=== PATIENT | male | born 1980 | race Caucasian/White ===

== ENCOUNTER 2017-03-18 03:44 | Emergency (ER) | payer BC | END 2017-03-18 09:36 | disposition home or self-care (01) | LOC: FTE 03:44 | DX: M79.601 Pain in right arm (principal); I10 Essential (primary) hypertension; F17.210 Nicotine dependence, cigarettes, uncomplicated | CPT/HCPCS: 73060; 73060-RT; 93971; 99284-25 ==

== ENCOUNTER 2017-05-17 18:53 | Emergency (ER) | payer SELFPAY, BC | END 2017-05-17 19:10 | disposition left against medical advice (07) | LOC: E/R 18:53 | DX: Z53.21 Procedure and treatment not carried out due to patient leaving prior to being seen by health care provider (principal) ==

== ENCOUNTER 2017-07-18 02:55 | Emergency (ER) | payer BC ==
[2017-07-18 04:07] LABS: ADD MAN DIFF? NO
[2017-07-18 04:09] LABS: WHITE BLOOD COUNT 6.3 10^3/ul (4.8-10.8)
[2017-07-18 04:09] LABS: BASOPHILS % 0.5 % (0.0-2.0); EOSINOPHILS # 0.2 10^3/ul (0.0-0.5); EOSINOPHILS % 2.7 % (0.0-7.0); HEMATOCRIT 44.3 % (42.0-52.0); LYMPHOCYTES # 1.2 10^3/ul (0.8-2.9); LYMPHOCYTES % 18.6 % (15.0-51.0); MEAN CORPUSCULAR HEMOGLOBIN 32.1 pg (29.0-33.0); MEAN CORPUSCULAR HGB CONC 33.9 g/dl (32.0-37.0); MEAN CORPUSCULAR VOLUME 94.9 fl (82.0-101.0); MEAN PLATELET VOLUME 10.9 fl (7.4-10.4); MONOCYTE # 0.6 10^3/ul (0.3-0.9); MONOCYTES % 9.7 % (0.0-11.0); NEUTROPHIL # 4.3 10^3/ul (1.6-7.5); PLATELET COUNT 186 10^3/UL (140-415); RED BLOOD COUNT 4.67 10^6/ul (4.70-6.10); RED CELL DISTRIBUTION WIDTH 12.4 % (11.5-14.5)
[2017-07-18] MEDS: morphine 4 MG/ML VIAL IV (04:12)
[2017-07-18] MEDS: SOD CHLORIDE 0.9% 1,000 ML IV (04:12)
[2017-07-18] MEDS: ONDANSETRON 4 MG INJ IV (04:12)
[2017-07-18 04:13] LABS: ADD UMIC YES; UR ASCORBIC ACID NEGATIVE (NEGATIVE); UR BILIRUBIN (Dip) NEGATIVE (NEGATIVE); UR BLOOD (Dip) 1+ mg/dL (NEGATIVE); UR CLARITY CLEAR (CLEAR); UR COLOR STRAW (YELLOW); UR GLUCOSE (Dip) NEGATIVE (NEGATIVE); UR KETONES (Dip) NEGATIVE (NEGATIVE); UR LEUKOCYTE ESTERASE (Dip) NEGATIVE Leu/ul (NEGATIVE); UR NITRITE (Dip) NEGATIVE (NEGATIVE); UR RBC 1 /HPF (0-5); UR SPECIFIC GRAVITY (Dip) 1.009 (1.003-1.030); UR TOTAL PROTEIN (Dip) NEGATIVE (NEGATIVE); UR UROBILINOGEN (Dip) NEGATIVE (NEGATIVE); UR WBC 0 /HPF (0-5)
[2017-07-18 04:27] LABS: ALANINE AMINOTRANSFERASE 32 IU/L (13-69); ALBUMIN 4.2 g/dl (3.3-4.9); ALBUMIN/GLOBULIN RATIO 1.27; ALKALINE PHOSPHATASE 126 IU/L (42-121); ANION GAP 17 (8-16); ASPARTATE AMINO TRANSFERASE 20 IU/L (15-46); BILIRUBIN,INDIRECT 0.2 mg/dl (0-1.1); BILIRUBIN,TOTAL 0.2 mg/dl (0.2-1.3); BLOOD UREA NITROGEN 24 mg/dl (7-20); CALCIUM 10.8 mg/dl (8.4-10.2); CARBON DIOXIDE 23 mmol/L (21-31); CHLORIDE 107 mmol/L (97-110); CREATININE 0.86 mg/dl (0.61-1.24); GLUCOSE 102 mg/dl (70-220); LIPASE 81 U/L (23-300); POTASSIUM 4.1 mmol/L (3.5-5.1); SODIUM 143 mmol/L (135-144); TOTAL PROTEIN 7.5 g/dl (6.1-8.1)
== END 2017-07-18 05:07 | disposition home or self-care (01) ==
LOC: E/R 02:55
DX: R10.31 Right lower quadrant pain (principal); R11.0 Nausea; I10 Essential (primary) hypertension
CPT/HCPCS: 36415; 74176; 80053; 81001; 83690; 85025; 96374; 96375; 99285-25

== ENCOUNTER 2017-07-29 04:06 | Emergency (ER) | payer BC ==
[2017-07-29 05:08] LABS: ADD MAN DIFF? NO
[2017-07-29] MEDS: morphine 4 MG/ML VIAL IV (05:08)
[2017-07-29] MEDS: ONDANSETRON 4 MG INJ IV (05:08)
[2017-07-29] MEDS: SOD CHLORIDE 0.9% 1,000 ML IV (05:08)
[2017-07-29 05:13] LABS: BASOPHILS % 0.6 % (0.0-2.0); EOSINOPHILS # 0.2 10^3/ul (0.0-0.5); EOSINOPHILS % 4.5 % (0.0-7.0); HEMATOCRIT 47.6 % (42.0-52.0); HEMOGLOBIN 16.1 g/dl (14.0-18.0); LYMPHOCYTES % 19.1 % (15.0-51.0); MEAN CORPUSCULAR HEMOGLOBIN 32.1 pg (29.0-33.0); MEAN CORPUSCULAR HGB CONC 33.8 g/dl (32.0-37.0); MONOCYTE # 0.5 10^3/ul (0.3-0.9); NEUTROPHIL # 3.5 10^3/ul (1.6-7.5); NEUTROPHILS % 66.2 % (39.0-77.0); PLATELET COUNT 189 10^3/UL (140-415); RED BLOOD COUNT 5.01 10^6/ul (4.70-6.10); RED CELL DISTRIBUTION WIDTH 12.5 % (11.5-14.5)
[2017-07-29 05:13] LABS: WHITE BLOOD COUNT 5.3 10^3/ul (4.8-10.8)
[2017-07-29 05:30] LABS: ALANINE AMINOTRANSFERASE 33 IU/L (13-69); ALBUMIN 4.4 g/dl (3.3-4.9); ALBUMIN/GLOBULIN RATIO 1.33; ALKALINE PHOSPHATASE 129 IU/L (42-121); ANION GAP 17 (8-16); ASPARTATE AMINO TRANSFERASE 20 IU/L (15-46); BILIRUBIN,INDIRECT 0.3 mg/dl (0-1.1); BILIRUBIN,TOTAL 0.3 mg/dl (0.2-1.3); BLOOD UREA NITROGEN 27 mg/dl (7-20); CALCIUM 10.9 mg/dl (8.4-10.2); CARBON DIOXIDE 22 mmol/L (21-31); CHLORIDE 109 mmol/L (97-110); CREATININE 0.76 mg/dl (0.61-1.24); GLUCOSE 116 mg/dl (70-220); LIPASE 128 U/L (23-300); SODIUM 144 mmol/L (135-144); TOTAL PROTEIN 7.7 g/dl (6.1-8.1)
== END 2017-07-29 05:55 | disposition home or self-care (01) ==
LOC: E/R 04:06
DX: E86.0 Dehydration (principal); R10.31 Right lower quadrant pain; I10 Essential (primary) hypertension; E11.9 Type 2 diabetes mellitus without complications; Z87.891 Personal history of nicotine dependence
CPT/HCPCS: 36415; 80053; 83690; 85025; 96374; 96375; 99284-25

== ENCOUNTER 2017-07-31 22:59 | Emergency (ER) | payer BC ==
[2017-08-01] MEDS: KETOROLAC 60 MG INJ IM (00:57)
[2017-08-01 01:04] LABS: ADD MAN DIFF? NO
[2017-08-01 01:07] LABS: BASOPHILS % 0.5 % (0.0-2.0); EOSINOPHILS # 0.2 10^3/ul (0.0-0.5); HEMATOCRIT 46.3 % (42.0-52.0); HEMOGLOBIN 15.6 g/dl (14.0-18.0); LYMPHOCYTES % 15.5 % (15.0-51.0); MEAN CORPUSCULAR HEMOGLOBIN 31.6 pg (29.0-33.0); MEAN CORPUSCULAR HGB CONC 33.7 g/dl (32.0-37.0); MEAN CORPUSCULAR VOLUME 93.7 fl (82.0-101.0); MONOCYTE # 0.5 10^3/ul (0.3-0.9); MONOCYTES % 8.1 % (0.0-11.0); NEUTROPHIL # 4.6 10^3/ul (1.6-7.5); NEUTROPHILS % 72.3 % (39.0-77.0); PLATELET COUNT 172 10^3/UL (140-415); RED BLOOD COUNT 4.94 10^6/ul (4.70-6.10); RED CELL DISTRIBUTION WIDTH 12.1 % (11.5-14.5)
[2017-08-01 01:07] LABS: WHITE BLOOD COUNT 6.3 10^3/ul (4.8-10.8)
[2017-08-01 01:24] LABS: ANION GAP 17 (8-16); BLOOD UREA NITROGEN 18 mg/dl (7-20); CALCIUM 10.7 mg/dl (8.4-10.2); CARBON DIOXIDE 22 mmol/L (21-31); CHLORIDE 107 mmol/L (97-110); GLUCOSE 100 mg/dl (70-220); POTASSIUM 4.2 mmol/L (3.5-5.1); SODIUM 142 mmol/L (135-144); URIC ACID 7.6 mg/dl (3.1-7.9)
== END 2017-08-01 02:32 | disposition home or self-care (01) ==
LOC: FTE 22:59
DX: M79.642 Pain in left hand (principal); E11.22 Type 2 diabetes mellitus with diabetic chronic kidney disease; N18.6 End stage renal disease; Z87.891 Personal history of nicotine dependence; Z94.0 Kidney transplant status
CPT/HCPCS: 73130; 73130-LT; 80048; 84560; 85025; 93971; 96372; 99285-25

== ENCOUNTER 2017-10-01 14:12 | Emergency (ER) | payer BC ==
[2017-10-01] MEDS: HYDROCODONE/APAP (10/325) TAB PO (15:07)
[2017-10-01] MEDS: DIPHENHYDRAMINE 25 MG CAP PO (15:07)
== END 2017-10-01 16:30 | disposition home or self-care (01) ==
LOC: E/R 14:12
DX: M10.9 Gout, unspecified (principal); E11.9 Type 2 diabetes mellitus without complications; Z79.84 Long term (current) use of oral hypoglycemic drugs
CPT/HCPCS: 99283

== ENCOUNTER 2017-10-20 05:10 | Emergency (ER) | payer BC ==
[2017-10-20 07:29] LABS: ADD MAN DIFF? NO
[2017-10-20 07:31] LABS: WHITE BLOOD COUNT 5.3 10^3/ul (4.8-10.8)
[2017-10-20 07:31] LABS: HEMATOCRIT 47.2 % (42.0-52.0); HEMOGLOBIN 16.1 g/dl (14.0-18.0); LYMPHOCYTES % 19.7 % (15.0-51.0); MEAN CORPUSCULAR HEMOGLOBIN 31.4 pg (29.0-33.0); MEAN CORPUSCULAR HGB CONC 34.1 g/dl (32.0-37.0); MEAN CORPUSCULAR VOLUME 92.2 fl (82.0-101.0); MEAN PLATELET VOLUME 11.4 fl (7.4-10.4); MONOCYTES % 8.3 % (0.0-11.0); NEUTROPHILS % 65.8 % (39.0-77.0); PLATELET COUNT 161 10^3/UL (140-415); RED BLOOD COUNT 5.12 10^6/ul (4.70-6.10); RED CELL DISTRIBUTION WIDTH 13.2 % (11.5-14.5)
[2017-10-20 07:32] LABS: BASOPHILS % 0.6 % (0.0-2.0); EOSINOPHILS # 0.2 10^3/ul (0.0-0.5); EOSINOPHILS % 4.1 % (0.0-7.0); LYMPHOCYTES # 1.1 10^3/ul (0.8-2.9); MONOCYTE # 0.4 10^3/ul (0.3-0.9); NEUTROPHIL # 3.5 10^3/ul (1.6-7.5)
[2017-10-20 07:49] LABS: ALANINE AMINOTRANSFERASE 44 IU/L (13-69); ALBUMIN 4.5 g/dl (3.3-4.9); ALBUMIN/GLOBULIN RATIO 1.55; ALKALINE PHOSPHATASE 136 IU/L (42-121); ANION GAP 15 (8-16); ASPARTATE AMINO TRANSFERASE 24 IU/L (15-46); BILIRUBIN,INDIRECT 0.3 mg/dl (0-1.1); BILIRUBIN,TOTAL 0.3 mg/dl (0.2-1.3); BLOOD UREA NITROGEN 19 mg/dl (7-20); CALCIUM 10.9 mg/dl (8.4-10.2); CARBON DIOXIDE 21 mmol/L (21-31); CHLORIDE 110 mmol/L (97-110); CREATININE 0.81 mg/dl (0.61-1.24); GLUCOSE 164 mg/dl (70-220); LIPASE 115 U/L (23-300); POTASSIUM 4.5 mmol/L (3.5-5.1); SODIUM 141 mmol/L (135-144); TOTAL PROTEIN 7.4 g/dl (6.1-8.1)
== END 2017-10-20 08:55 | disposition home or self-care (01) ==
LOC: FTE 05:10
DX: R50.9 Fever, unspecified (principal); R11.10 Vomiting, unspecified; R19.7 Diarrhea, unspecified; E11.9 Type 2 diabetes mellitus without complications; F17.210 Nicotine dependence, cigarettes, uncomplicated; Z79.82 Long term (current) use of aspirin; Z79.84 Long term (current) use of oral hypoglycemic drugs
CPT/HCPCS: 36415; 80053; 83690; 85025; 99283

== ENCOUNTER 2017-11-11 03:14 | Observation (INO) | payer BC ==
[2017-11-11 04:22] LABS: ADD MAN DIFF? NO
[2017-11-11 04:24] LABS: BASOPHILS % 0.4 % (0.0-2.0); EOSINOPHILS # 0.1 10^3/ul (0.0-0.5); EOSINOPHILS % 1.1 % (0.0-7.0); HEMATOCRIT 48.2 % (42.0-52.0); HEMOGLOBIN 16.4 g/dl (14.0-18.0); LYMPHOCYTES # 1.3 10^3/ul (0.8-2.9); MEAN CORPUSCULAR HEMOGLOBIN 31.1 pg (29.0-33.0); MEAN CORPUSCULAR VOLUME 91.5 fl (82.0-101.0); MEAN PLATELET VOLUME 11.5 fl (7.4-10.4); MONOCYTE # 0.7 10^3/ul (0.3-0.9); MONOCYTES % 8.7 % (0.0-11.0); NEUTROPHILS % 72.7 % (39.0-77.0); PLATELET COUNT 189 10^3/UL (140-415); RED BLOOD COUNT 5.27 10^6/ul (4.70-6.10); RED CELL DISTRIBUTION WIDTH 13.2 % (11.5-14.5)
[2017-11-11 04:24] LABS: WHITE BLOOD COUNT 8.2 10^3/ul (4.8-10.8)
[2017-11-11 04:41] LABS: ANION GAP 21 (8-16); BLOOD UREA NITROGEN 21 mg/dl (7-20); CALCIUM 10.6 mg/dl (8.4-10.2); CARBON DIOXIDE 17 mmol/L (21-31); CHLORIDE 109 mmol/L (97-110); CREATININE 1.15 mg/dl (0.61-1.24); GLUCOSE 136 mg/dl (70-220); POTASSIUM 4.2 mmol/L (3.5-5.1); SODIUM 143 mmol/L (135-144)
[2017-11-11 04:53] LABS: B-TYPE NATRIURETIC PEPTIDE 161 PG/ML (0-125); TROPONIN-I 0.022 ng/ml (0.000-0.120)
[2017-11-11] MEDS ORDERED: IOHEXOL 300MG/ML 150 ML BTL (05:11)
[2017-11-11] MEDS ORDERED: SOD CHLORIDE 0.9% 100 ML (05:11)
[2017-11-11] MEDS ORDERED: NACL 0.9% 3 ML SYG IV (09:30)
[2017-11-11] MEDS ORDERED: GLUCOSE GEL 15 GRAM TUBE BUCCAL (09:30)
[2017-11-11] MEDS ORDERED: ONDANSETRON 4 MG INJ IV (09:30)
[2017-11-11] MEDS ORDERED: DEXTROSE 50% 50 ML SYRINGE IV ×2 (09:30)
[2017-11-11] MEDS ORDERED: HYDROCODONE/APAP (5/325) TAB PO (09:30)
[2017-11-11] MEDS ORDERED: ACETAMINOPHEN 325 MG TAB PO (09:30)
[2017-11-11] MEDS ORDERED: GLUCOSE GEL 15 GRAM TUBE PO ×2 (09:30)
[2017-11-11] MEDS ORDERED: MAGNESIUM HYDROXIDE 30ML CUP PO (09:30)
[2017-11-11] MEDS ORDERED: GLUCAGON 1 MG INJ IM (09:30)
[2017-11-11] MEDS ORDERED: DOCUSATE SODIUM 100 MG CAP PO (09:30)
[2017-11-11] MEDS: MAGNESIUM OXIDE 400 MG TAB PO ×2 (09:51→20:23)
[2017-11-11] MEDS: FAMOTIDINE 20 MG TAB PO (09:51)
[2017-11-11] MEDS: predniSONE 5 MG TAB PO (09:52)
[2017-11-11] MEDS: morphine 2 MG INJ IV ×2 (09:52→18:57)
[2017-11-11 10:28] LABS: INR 0.89; PROTIME 12.1 Sec (11.9-14.9); PT RATIO 0.9
[2017-11-11] MEDS ORDERED: SOD PHOS MONO/DIBAS 250 MG TAB PO (10:30)
[2017-11-11 10:37] LABS: CREATINE KINASE 65 IU/L (23-200)
[2017-11-11 10:50] LABS: CK INDEX 5.5; TROPONIN-I 0.017 ng/ml (0.000-0.120)
[2017-11-11] MEDS: TACROLIMUS 1 MG CAP PO ×2 (12:17→20:25)
[2017-11-11] MEDS: NEUTRA-PHOS 250 MG PACKET PO ×2 (12:18→20:25)
[2017-11-11] MEDS: MYCOPHENOLATE 250 MG CAP PO ×2 (12:18→20:24)
[2017-11-11] MEDS: CINACALCET 30 MG TAB PO (12:18)
[2017-11-11] MEDS: INSULIN ASPART [NOVOLOG] 3 ML PEN SC ×3 (12:34→20:51)
[2017-11-11] MEDS: INSULIN GLARGINE [LANTus] (100 UNITS/ML) SYG SC (12:34)
[2017-11-11] MEDS: DIPHENHYDRAMINE 25 MG CAP PO (12:56)
[2017-11-11] MEDS: PANTOPRAZOLE 40 MG INJ IV (13:05)
[2017-11-11] MEDS: LIDOCAINE 5% PATCH TD (13:15)
[2017-11-11] MEDS: HEPARIN 5,000 UNIT/0.5 ML VIAL SC ×2 (13:21→22:19)
[2017-11-11] MEDS ORDERED: FAMOTIDINE 20 MG INJ IV (14:00)
[2017-11-11] MEDS: CYCLOBENZAPRINE 10 MG TAB PO ×2 (15:33→20:28)
[2017-11-11] MEDS: NAPROXEN 250 MG TAB PO ×2 (15:34→20:24)
[2017-11-11 17:10] LABS: CREATINE KINASE 65 IU/L (23-200)
[2017-11-11 17:21] LABS: CK INDEX 6.1; CK-MB 3.97 ng/ml (0.0-2.4); TROPONIN-I < 0.012 ng/ml (0.000-0.120)
[2017-11-12] MEDS: morphine 2 MG INJ IV ×2 (01:22→08:54)
[2017-11-12] MEDS: ACCU-CHEK XX (02:00)
[2017-11-12] MEDS: PANTOPRAZOLE 40 MG INJ IV (05:40)
[2017-11-12] MEDS: HEPARIN 5,000 UNIT/0.5 ML VIAL SC (05:50)
[2017-11-12 06:14] LABS: ADD MAN DIFF? NO
[2017-11-12 06:38] LABS: BASOPHILS % 0.5 % (0.0-2.0); EOSINOPHILS # 0.1 10^3/ul (0.0-0.5); HEMATOCRIT 46.9 % (42.0-52.0); HEMOGLOBIN 15.9 g/dl (14.0-18.0); LYMPHOCYTES # 1.2 10^3/ul (0.8-2.9); LYMPHOCYTES % 31.4 % (15.0-51.0); MEAN CORPUSCULAR HEMOGLOBIN 31.2 pg (29.0-33.0); MEAN CORPUSCULAR HGB CONC 33.9 g/dl (32.0-37.0); MEAN PLATELET VOLUME 11.5 fl (7.4-10.4); MONOCYTE # 0.4 10^3/ul (0.3-0.9); MONOCYTES % 9.5 % (0.0-11.0); NEUTROPHILS % 55.1 % (39.0-77.0); PLATELET COUNT 158 10^3/UL (140-415); RED CELL DISTRIBUTION WIDTH 13.3 % (11.5-14.5)
[2017-11-12 06:38] LABS: WHITE BLOOD COUNT 3.7 10^3/ul (4.8-10.8)
[2017-11-12 06:43] LABS: HEMOGLOBIN A1C 7.3 % (0-5.9)
[2017-11-12 06:59] LABS: ALANINE AMINOTRANSFERASE 60 IU/L (13-69); ALBUMIN 3.9 g/dl (3.3-4.9); ALBUMIN/GLOBULIN RATIO 1.39; ALKALINE PHOSPHATASE 127 IU/L (42-121); ANION GAP 17 (8-16); ASPARTATE AMINO TRANSFERASE 39 IU/L (15-46); BILIRUBIN,INDIRECT 0.5 mg/dl (0-1.1); BILIRUBIN,TOTAL 0.5 mg/dl (0.2-1.3); BLOOD UREA NITROGEN 28 mg/dl (7-20); CALCIUM 9.9 mg/dl (8.4-10.2); CARBON DIOXIDE 20 mmol/L (21-31); CHLORIDE 109 mmol/L (97-110); CREATININE 1.26 mg/dl (0.61-1.24); GLUCOSE 119 mg/dl (70-220); MAGNESIUM 1.9 mg/dl (1.7-2.5); POTASSIUM 4.6 mmol/L (3.5-5.1); SODIUM 141 mmol/L (135-144); TOTAL PROTEIN 6.7 g/dl (6.1-8.1)
[2017-11-12] MEDS: INSULIN ASPART [NOVOLOG] 3 ML PEN SC ×2 (07:55→11:50)
[2017-11-12] MEDS: MYCOPHENOLATE 250 MG CAP PO (08:52)
[2017-11-12] MEDS: CINACALCET 30 MG TAB PO (08:52)
[2017-11-12] MEDS: predniSONE 5 MG TAB PO (08:53)
[2017-11-12] MEDS: CYCLOBENZAPRINE 10 MG TAB PO (08:53)
[2017-11-12] MEDS: NAPROXEN 250 MG TAB PO (08:54)
[2017-11-12] MEDS: MAGNESIUM OXIDE 400 MG TAB PO (08:54)
[2017-11-12] MEDS: LIDOCAINE 5% PATCH TD (08:55)
[2017-11-12] MEDS: NEUTRA-PHOS 250 MG PACKET PO (08:55)
[2017-11-12] MEDS: INSULIN GLARGINE [LANTus] (100 UNITS/ML) SYG SC (08:57)
[2017-11-12] MEDS: TACROLIMUS 1 MG CAP PO (09:00)
[2017-11-12] MEDS: SOD CHLORIDE 0.9% 1,000 ML IV (09:30)
== END 2017-11-12 14:15 | disposition home or self-care (01) ==
LOC: E/R 03:14 → TEL 06:59
DX: R07.9 Chest pain, unspecified (principal); I12.0 Hypertensive chronic kidney disease with stage 5 chronic kidney disease or end stage renal disease; N18.6 End stage renal disease; Z99.2 Dependence on renal dialysis; Z94.0 Kidney transplant status; E11.9 Type 2 diabetes mellitus without complications; I82.90 Acute embolism and thrombosis of unspecified vein; I82.611 Acute embolism and thrombosis of superficial veins of right upper extremity; Z79.84 Long term (current) use of oral hypoglycemic drugs
CPT/HCPCS: 36415; 71275; 80048; 80053; 82550; 82553; 82962; 83036; 83735; 83880; 84484; 85025; 85610; 93005; 93306; 99285-25; G0378

== ENCOUNTER 2018-01-25 16:59 | Emergency (ER) | payer BC ==
[2018-01-25] MEDS: ONDANSETRON 4 MG INJ IV (18:14)
[2018-01-25] MEDS: morphine 2 MG INJ IV (18:15)
[2018-01-25 18:25] LABS: ADD MAN DIFF? NO
[2018-01-25 18:26] LABS: BASOPHILS % 0.7 % (0.0-2.0); EOSINOPHILS # 0.1 10^3/ul (0.0-0.5); EOSINOPHILS % 2.4 % (0.0-7.0); HEMATOCRIT 50.5 % (42.0-52.0); LYMPHOCYTES # 0.7 10^3/ul (0.8-2.9); LYMPHOCYTES % 15.1 % (15.0-51.0); MEAN CORPUSCULAR HEMOGLOBIN 31.8 pg (29.0-33.0); MEAN CORPUSCULAR HGB CONC 33.7 g/dl (32.0-37.0); MEAN CORPUSCULAR VOLUME 94.4 fl (82.0-101.0); MEAN PLATELET VOLUME 11.1 fl (7.4-10.4); MONOCYTE # 0.4 10^3/ul (0.3-0.9); NEUTROPHIL # 3.3 10^3/ul (1.6-7.5); NEUTROPHILS % 73.1 % (39.0-77.0); PLATELET COUNT 189 10^3/UL (140-415); RED BLOOD COUNT 5.35 10^6/ul (4.70-6.10); RED CELL DISTRIBUTION WIDTH 13.4 % (11.5-14.5)
[2018-01-25 18:26] LABS: WHITE BLOOD COUNT 4.5 10^3/ul (4.8-10.8)
[2018-01-25] MEDS: SOD CHLORIDE 0.9% 500 ML IV (18:43)
[2018-01-25 18:46] LABS: ALANINE AMINOTRANSFERASE 77 IU/L (13-69); ALBUMIN 4.7 g/dl (3.3-4.9); ALKALINE PHOSPHATASE 129 IU/L (42-121); ANION GAP 13 (5-13); ASPARTATE AMINO TRANSFERASE 46 IU/L (15-46); BILIRUBIN,INDIRECT 0.5 mg/dl (0-1.1); BILIRUBIN,TOTAL 0.5 mg/dl (0.2-1.3); BLOOD UREA NITROGEN 16 mg/dl (7-20); CALCIUM 9.8 mg/dl (8.4-10.2); CARBON DIOXIDE 22 mmol/L (21-31); CHLORIDE 105 mmol/L (97-110); CREATININE 1.08 mg/dl (0.61-1.24); Estimated GFR > 60 mL/min (>60); GLUCOSE 127 mg/dl (70-220); POTASSIUM 4.8 mmol/L (3.5-5.1); SODIUM 140 mmol/L (135-144); TOTAL PROTEIN 7.3 g/dl (6.1-8.1)
== END 2018-01-25 19:24 | disposition home or self-care (01) ==
LOC: FTE 16:59
DX: M25.561 Pain in right knee (principal); M25.461 Effusion, right knee; E11.9 Type 2 diabetes mellitus without complications; Z79.84 Long term (current) use of oral hypoglycemic drugs; Z87.891 Personal history of nicotine dependence
CPT/HCPCS: 36415; 73562; 80053; 85025; 93971; 96374; 96375; 99285-25